=== PATIENT | female | born 2000 | race Caucasian/White ===

== ENCOUNTER → 2019-01-19 16:09 | Outpatient (CLI) | payer BC, SELFPAY ==
[2019-01-19 17:35] LABS: Internal QC Validated? YES +Cl - CLEAR BKGD; Pregnancy, Urine Negative Negative
== END ==
PROVIDERS: Family Provider Family Medicine; PCP Family Medicine; Referring Provider Dermatology; Visit Provider Dermatology
DX: L70.0 Acne vulgaris (principal); Z79.899 Other long term (current) drug therapy
CPT/HCPCS: 81025

== ENCOUNTER 2019-08-12 16:25 | Emergency (ER) | payer BC, MEDICAID, SELFPAY ==
[2019-08-12 16:27] VITALS: BP 109/66; PULSE 85; RESP 16; TEMP 36.5; O2SAT 100; BMI 25.7
--- NOTE | 2019-08-12 16:56 | CT_ITS ---
STUDY: CT SOFT TISSUE NECK WITH CONTRAST REASON FOR EXAM: Female, 19 years old. Chin abscess RADIATION DOSAGE (If Supplied By Facility): CTDIvol = ( 13.11 ) mGy, DLP = ( 402.82 ) mGycm TECHNIQUE: The patient was scanned in a multi-detector CT scanner. High resolution transaxial imaging was performed following intravenous administration of IV 75mL [id number]-370 75ML. Sagittal and coronal images were reconstructed. Individualized dose optimization techniques were used for this CT. COMPARISON: None. FINDINGS: There is a 1.2 cm left of midline left mental space subcutaneous and intramuscular inflammatory focus, likely early abscess formation. There is mild surrounding cellulitis. Underlying mandible is intact without periosteal reaction. Adjacent dental structures are normal. Remainder of the soft tissues of the orbits, face and neck are unremarkable. Airway is patent. CT/Soft Tissue Neck WITH Contrast IMPRESSION: Presumed early abscess formation in the left midline chin. No adjacent osteomyelitis. Electronically Signed: Rajinder Ovalles, at 18:37 EDT Tel , Service support ,
[2019-08-12 17:26] LABS: Absolute Lymphocyte Count 2.51 X10^3/uL (0.83-4.51); Absolute Neutrophil Count 8.2 X10^3/uL (2.0-7.7); Basophil# 0.05 X10^3/uL; Basophil% 0.4 % (0-1); Eosinophil# 0.15 X10^3/uL; Eosinophils% 1.3 % (0-5); Hematocrit 44.8 % (37-47); Hemoglobin 14.8 g/dL (12.0-15.0); Lymphocyte # 2.51 X10^3/ul (4.0); Lymphocyte % 21.2 % (19-41); Mean Corpuscular Hgb 29.1 pg (27.0-32.0); Mean Corpuscular Volume 88.2 fL (81-99); Mean Platelet Vol. 9.9 fl (6.2-12.0); Monocyte# 0.91 X10^3/uL; Monocyte% 7.7 % (0-10); NRBC Flagged by Analyzer 0 % (0-5); Neutrophil # 8.17 X10^3/uL (2.7-7.7); Neutrophil % 69.1 % (47-70); Platelet Count 290 K/mm3 (150-450); RBC Distribution Width CV 12.5 % (11.6-14.6); RBC Distribution Width SD 40.8 fl (35.1-43.9); Red Blood Count 5.08 M/mm3 (4.2-5.4); White Blood Count 11.8 K/mm3 (4.4-11.0)
[2019-08-12 18:01] LABS: Internal QC Validated? YES +Cl - CLEAR BKGD; Pregnancy, Serum, hCG Quali. NEGATIVE Negative
[2019-08-12 18:09] LABS: Anion Gap 8 (5-15); BUN 10 mg/dL (7-18); Chloride 105 mmol/L (98-107); Creatinine, Serum 0.91 mg/dL (0.55-1.02); EST Glomerular Filtration Rate 84 mL/min (>60); Est Glom Filt Rate - Afr Amer 101 mL/min (>60); Estimated Creatinine Clearance 81.58 ml/min; Glucose 86 mg/dL (74-106); Potassium 3.7 mmol/L (3.5-5.1); Sodium Level 138 mmol/L (136-145)
--- NOTE | 2019-08-12 18:47 | ED.VISSUMM ---
- ER Visit Summary Date of Service: 08/12/19 Chief Complaint: Facial abscess History of Present Illness: The patient is a 19 F who presents with a facial abscess that became worse today. Patient was seen at a different emergency department yesterday and had the abscess aspirated with a needle. Patient followed up with her primary care physician today who referred her to the emergency department. Patient states it feels like it is getting worse. Patient states it feels like it is spreading under her chin. Patient states she feels like there are swollen lymph nodes in her left neck. Patient denies any difficulty swallowing. Patient states they gave her a [place] yesterday which did help. Physical Examination: Vital signs are stable. Patient is afebrile. Patient is in no acute distress. Skin is warm dry. There is a tender erythematous area of the left anterior chin. There is mild fluctuance. There is no active discharge or drainage. There is some mild sublingual tenderness but no edema or erythema. There is mild anterior cervical adenopathy on the left. Oral mucosa is pink and moist. Oropharynx is clear. Heart was regular rate and rhythm. Lungs are clear and equal bilaterally. Test Results: CBC showed a slight leukocytosis of 11.8. Basic metabolic profile was normal. hCG was negative. CT scan of the soft tissue neck was obtained. There is an abscess over the anterior chin left of the midline. There is no sublingual abscess formation. There is no evidence of Vikas angina. Emergency Department Course and Treatment: The abscess area was cleaned and anesthetized 1% plain lidocaine locally. A #11 blade scalpel was used to make a small vertical incision. A moderate to large amount of purulent material was expressed. The wound was left open. Bacitracin dressing was applied. Patient was instructed to continue using bacitracin dressings. Patient was instructed to keep the area clean. Patient was given a prescription for Keflex to take in addition to the Bactrim she was prescribed yesterday. Patient was instructed to follow-up with her primary care physician in 5 to 7 days. Patient and family understood and were agreeable with the plan. All questions were answered. Disposition: Discharge home Impression: Facial abscess This note was generated with [employer] software. It may contain incorrect words, spelling, and punctuation that were not noted in review of the chart prior to signing ED Disposition - Plan for ED Patient: Disposition: Home or Assisted Living Diagnosis: Facial abscess Instructions: ABSCESS, Incision and Drainage Prescriptions: Cephalexin [Keflex] 500 mg PO Q6 #40 cap Prescription Printed Referrals: Ad Ricketts III, MD [Primary Care Provider] - 5-7 Days
[2019-08-12 19:25] VITALS: BP 112/87
[2019-08-12] MEDS: Cephalexin 250 MG Capsule 500 MG PO (19:46)
[2019-08-12 19:54] VITALS: BP 123/76; PULSE 67; RESP 17; O2SAT 98
== END 2019-08-12 19:54 | disposition home or self-care (01) ==
PROVIDERS: Emergency Provider Emergency Medicine; Family Provider Family Medicine; PCP Family Medicine
DX: L02.01 Cutaneous abscess of face (principal)
CPT/HCPCS: 70491; 80048; 84703; 85025; 99284; Q9967; A4216

== ENCOUNTER 2021-05-25 13:30 | Outpatient (CLI) | payer BC, MEDICAID, SELFPAY ==
[2021-05-25 13:40] VITALS: BMI 30.4
[2021-05-25 13:44] VITALS: BP 106/60; PULSE 76; TEMP 36.6; O2SAT 98
[2021-05-25 13:47] VITALS: BP 106/60; PULSE 83
[2021-05-25 13:48] VITALS: PULSE 81; O2SAT 98
--- NOTE | 2021-05-26 10:36 | OB.TRI.NOTE ---
HPI - General HPI Narrative ANGÉLICA COLLAZO, is a 21 F who presents with DFM and cramping. PFSH PFSH Home Medications famotidine [Pepcid] 20 mg PO DAILY 05/25/21 [History Last Taken 05/24/21 22:00] [id number] [Prenatabs FA] 1 tab PO DAILY 05/25/21 [History Last Taken 05/25/21 10:00] Allergy/AdvReac Type Severity Reaction Status Date / Time nitrofurantoin Allergy Hives Verified 05/25/21 13:41 [From Macrobid] Social History Smoking Status: Never smoker NST FHR Rate Baby A Baseline: 135 Variability:: Moderate Accelerations:: 15 x 15 Decelerations:: None NST Reactive:: Yes FHR Category:: Category I Uterine Activity:: No regular, frequent ctx's Assessment & Plan (1) 38 weeks gestation of : PLAN: Not in labor. NST reactive. Pt now feeling good FM. Discharged home with follow up in office. (2) Decreased movement: (3) Cramping affecting , antepartum:
== END 2021-05-25 14:49 | disposition home or self-care (01) ==
LOC: WPOUT 13:39 → WP 13:39
PROVIDERS: PCP Family Medicine; Visit Provider Obstetrics & Gynecology
DX: O36.8130 Decreased fetal movements, third trimester, not applicable or unspecified (principal); O47.1 False labor at or after 37 completed weeks of gestation; O26.893 Other specified pregnancy related conditions, third trimester; R10.9 Unspecified abdominal pain; Z3A.38 38 weeks gestation of pregnancy
CPT/HCPCS: 59025; 59050; 99218; G0378

== ENCOUNTER 2021-06-09 19:00 | Inpatient (IN) | payer BC, MEDICAID, SELFPAY ==
[2021-06-09 19:22] VITALS: BMI 30.1
[2021-06-09 19:32] VITALS: BP 121/77; PULSE 93; TEMP 36.4
[2021-06-09 19:33] VITALS: PULSE 92; O2SAT 100
[2021-06-09] MEDS: miSOPROStol 25 MCG TABLET VAGINAL (20:05)
[2021-06-09 20:13] LABS: Absolute Lymphocyte Count 2.06 X10^3/uL (0.83-4.51); Basophil# 0.05 X10^3/uL; Basophil% 0.4 % (0-1); Eosinophil# 0.16 X10^3/uL; Eosinophils% 1.1 % (0-5); Hematocrit 37.4 % (37-47); Hemoglobin 12.4 g/dL (12.0-15.0); Lymphocyte # 2.06 X10^3/ul (0.83-4.51); Lymphocyte % 14.5 % (19-41); Mean Corp Hgb Conc 33.2 g/dL (32-36); Mean Corpuscular Hgb 29.4 pg (27.0-32.0); Mean Corpuscular Volume 88.6 fL (81-99); Mean Platelet Vol. 11.9 fl (6.2-12.0); Monocyte# 0.93 X10^3/uL; Monocyte% 6.5 % (0-10); NRBC Flagged by Analyzer 0 % (0-5); Neutrophil # 10.95 X10^3/uL (2.7-7.7); Neutrophil % 77.1 % (47-70); Platelet Count 210 K/mm3 (150-450); RBC Distribution Width CV 13.4 % (11.6-14.6); RBC Distribution Width SD 43.7 fl (35.1-43.9); Red Blood Count 4.22 M/mm3 (4.2-5.4); White Blood Count 14.2 K/mm3 (4.4-11.0)
[2021-06-09 22:53] LABS: ROM Internal Control Test YES-OK TO RESULT pt. (Internal QC); ROM Patient Test Negative (Negative)
[2021-06-10] VITALS (74 sets, daily range): BP systolic 79–126; BP diastolic 51–86; PULSE 8–89; RESP 14–18; TEMP 35.8–36.9; O2SAT 83–100
[2021-06-10] MEDS: miSOPROStol 25 MCG TABLET VAGINAL (00:07)
[2021-06-10] MEDS: Lactated Ringers 1,000 ML 50 ML IV (03:06)
[2021-06-10] MEDS: Lactated Ringers 500 ML 999 ML IV ×4 (03:55→11:50)
[2021-06-10] MEDS: Oxytocin 30 units/NS 500 ml 30 UNITS/500 ML IV.SOLN IV (06:31)
--- NOTE | 2021-06-10 08:54 | HP.PCM.OB_ITS ---
HPI - General General Date of Admission: 06/09/21 HPI Narrative ANGÉLICA COLLAZO, is a 21 F who presents at 40 weeks 2 days for elective induction of labor after discussing nulliparous low risk patient and reviewing ARRIVE trial. Elected for IOL. Admitted for cytotec cervical ripening. Maternal Data Information JAMIE Calculator Estimated Delivery Date Method Current WG Current Estimate 06/08/21 Manual 40w 2d PFSH PFSH Medical History (Updated 06/10/21 @ 12:00 by Camelia Gray CNM) Anxiety Depression Home Medications famotidine [Pepcid] 20 mg PO DAILY 05/25/21 [History Last Taken 06/09/21 18:00] vit,[id number] [Prenatabs FA] 1 tab PO DAILY 05/25/21 [History Last Taken 06/09/21 08:00] Allergy/AdvReac Type Severity Reaction Status Date / Time nitrofurantoin Allergy Hives Verified 05/25/21 13:41 [From Macrobid] Social History Smoking Status: Never smoker NST FHR Rate Baby A Baseline: 125 Variability:: Minimal Accelerations:: None Decelerations:: Variable FHR Category:: Category II Uterine Activity:: every 2-4 minutes, strong ROS Constitutional Constitutional: Reports systems reviewed and no addt'l complaints, except as documented; Denies headache(s) Eyes Eyes: Denies acute decrease in peripheral vision, blurry vision or change in vision ENT HEENT: Reports systems reviewed and no addt'l complaints, except as documented Cardiovascular Cardiovascular: Denies chest pain or dizziness Respiratory/Chest Respiratory/Chest: Denies cough, dyspnea, dyspnea on exertion, shortness of nata ath at rest or shortness of breath with exertion Gastrointestinal Gastrointestinal: Denies abdominal pain, diarrhea, nausea or vomiting Genitourinary Genitourinary: Denies abdominal discomfort or movement Musculoskeletal Musculoskeletal: Denies limited range of motion Integumentary Integumentary: Reports systems reviewed and no addt'l complaints, except as documented Neurologic Neurologic: Reports systems reviewed and no addt'l complaints, except as documented Psychiatric Psychiatric: Reports systems reviewed and no addt'l complaints, except as docum ented Endocrine Endocrinology: Reports systems reviewed and no addt'l complaints, except as documented Hematologic/Lymphatic Hematologic/Lymphatic: Reports systems reviewed and no addt'l complaints, except as documented Allergic/Immunologic Allergic/Immunologic: Reports systems reviewed and no addt'l complaints, except as documented Vital Signs Vital Signs Vital Signs: 06/09/21 19:32 06/09/21 19:33 06/10/21 00:01 Temperature 97.6 F L 97.9 F Temperature Source Temporal Temporal Pulse Rate 93 92 68 Blood Pressure 121/77 H 117/76 BP Systolic 121 117 BP Diastolic 77 76 Pulse Ox 100 06/10/21 00:02 06/10/21 00:03 06/10/21 03:55 Temperature 97.8 F Temperature Source Temporal Pulse Rate 70 70 67 Blood Pressure 104/57 L BP Systolic 104 BP Diastolic 57 Pulse Ox 99 99 06/10/21 06:22 06/10/21 06:25 06/10/21 06:26 Temperature 98.4 F Temperature Source Temporal Pulse Rate 70 65 Blood Pressure 122/82 H BP Systolic 122 BP Diastolic 82 Pulse Ox 100 06/10/21 07:24 06/10/21 07:25 06/10/21 08:25 Temperature 97.0 F L Temperature Source Temporal Pulse Rate 69 70 70 Blood Pressure 112/71 114/73 BP Systolic 112 114 BP Diastolic 71 73 Pulse Ox 100 100 Weight Weight: 170 lb 4 oz Body Mass Index (BMI) 30.1 Physical Exam Const alert and oriented x3 General Appearance: cooperative Orientation / Consciousness: awake, oriented to person, oriented to place and oriented to time Exam Limitations: no limitations HEENT normocephalic Head and Scalp: normal to inspection, normocephalic and atraumatic Face and Sinus: normal facial exam Eyes General Eye: normal appearance of both eyes Neck full ROM Chest Chest: symmetrical chest wall rise Resp normal respiratory effort and normal air movement Auscultation: clear to auscultation bilaterally Cardio regular rate, regular rhythm, S1 normal heart sound, S2 normal heart sound, no murmurs, no rub, no gallops and no clicks GI normal to inspection, nondistended, normoactive bowel sounds and non-tender appearance of the vagina normal Narrative: AROM clear fluid, small amount. 4cm/50%/-1 Bladder / Kidney Exam: no CVA tenderness Back/Spine normal ROM Extremity normal to inspection and full ROM Skin no rashes or lesions noted Neuro oriented x3, CN's II-XII intact bilaterally and moves all extremities Sensorium / Orientation: awake, alert and oriented to person Motor Exam: clonus absent Deep Tendon Reflexes: Rt Patellar (L4): 2+ and Lt Patellar (L4): 2+ Labs Labs Labs: Blood Type A POSITIVE Antibody Screen NEGATIVE Hct 37.4 % (37-47) Hgb 12.4 g/dL (12.0-15.0) RPR negative 1hr GCT normal Rubella Immune HBsAG negative HIV negative HepC negative GC/CT negative A positive COVID negative on 06/06/21 Assessment & Plan (1) Encounter for elective induction of labor: (2) Anxiety: PLAN: 1) Admit to labor and delivery for elective induction of labor 2) Routine labs 3) COVID negative 4) Continuous EFM 5) Epidural for pain management 6) AROM. Pitocin per protocol 7) collaborative physician and notified of patient status.
[2021-06-10] MEDS: fentaNYL-bupivacaine (epidural) 100 ML BAG EPIDURAL (09:34)
[2021-06-10] MEDS: Lactated Ringers 1,000 ML 200 ML IV (09:38)
--- NOTE | 2021-06-10 12:05 | PN.OBGYN_ITS ---
Subjective Subjective comfortable with epidural. Family at bedside. Position on left lateral side. Objective Data Objective Data Vital Signs: Vital Signs Temp Pulse BP Pulse Ox 97.0 F L 64 119/72 100 06/10/21 10:28 06/10/21 11:46 06/10/21 11:39 06/10/21 11:46 Weight: 170 lb 4 oz Body Mass Index (BMI) 30.1 Intake & Output: Intake and Output for Last 24 Hours 06/08/21 06/09/21 06/10/21 23:59 23:59 23:59 Intake Total 1605.13 / 1605.13 Balance 1605.13 / 1605.13 Lab / Micro Data Result Diagrams: 06/09/21 19:40 Labs: Laboratory Results - last 24 hr 06/09/21 19:40: WBC 14.2 H, RBC 4.22, Hgb 12.4, Hct 37.4, MCV 88.6, MCH 29.4, MCHC 33.2, RDW Std Deviation 43.7, RDW Coeff of Aditya 13.4, Plt Count 210, MPV 11.9, Immature Gran % (Auto) 0.400, Neut % (Auto) 77.1 H, Lymph % (Auto) 14.5 L, [place] % (Auto) 6.5, Eos % (Auto) 1.1, Baso % (Auto) 0.4, Absolute Neuts (auto) 11.0 H, Absolute Lymphs (auto) 2.06, Nucleated RBC % 0 06/09/21 19:40: Blood Type A POSITIVE, Antibody Screen NEGATIVE 06/09/21 22:00: Vag Amniotic Fld Detect Negative Physical Exam Narrative 5cm/70%/-1 asynclitic NST FHR Rate Baby A Baseline: 145 Variability:: Minimal Accelerations:: 15 x 15 Decelerations:: Variable FHR Category:: Category II Uterine Activity:: Irregular. Pitocin off Assessment & Plan (1) Encounter for elective induction of labor: PLAN: 1) Called to labor and delivery for prolonged decelerations, BP low and anesthesia called to give ephedrine. BP stable. and FHR return to baseline 2) Asynclitic position, peanut ball to help with position 3) To turn pitocin back on after recovery for 30 minutes 4) notified of patient status
[2021-06-10] MEDS: Amnioinfusion- 0.9% NS 1,000 ML IV.SOLN. 1000 ML INTRA-UTER (12:12)
[2021-06-10] MEDS: Sodium Citrate/Citric Acid 30 ML UDC PO (12:49)
[2021-06-10] MEDS: Methylergonovine 0.2 MG/ML Ampul IM (13:23)
[2021-06-10] MEDS: Cefazolin 2 GM in 0.9% Normal Saline 100 ML IV (13:29)
[2021-06-10] MEDS: proCHLORPERazine 10 MG/2 ML Vial IV (14:23)
[2021-06-10] MEDS: 0.9% Saline Lock 10 ML Syringe IV ×2 (14:29→14:33)
[2021-06-10] MEDS: Ketorolac 30 MG/ML Syringe IV ×2 (14:29→20:10)
[2021-06-10] MEDS: Oxytocin 30 units/NS 500 ml 30 UNITS/500 ML IV.SOLN 167 UNITS IV (14:34)
--- NOTE | 2021-06-10 15:52 | PCM.OPRPT ---
Problems Associated Problem List Diagnoses (1) Encounter for elective induction of labor: (2) intolerance to labor, delivered, current hospitalization: Report of Operation Date of Procedure: 06/10/21 Pre-Operative Diagnosis: Elective IOL, 40 week gestation, intolerance to labor Post-Operative Diagnosis: As above Surgery/Procedure Performed:: Primary section Description of Surgical Findings:: Normal appearing uterus, bilateral tubes, bilateral ovaries. Normal-appearing placenta. Nuchal cord x 1. Surgeon: rios valdez tooth cutter contact wheel: Dwight Type of Anesthesia: Epidural Special Medications: None Specimen's removed: Placenta Drains: Jenkins Estimated Blood Loss (mL): 800 Fluids Replaced: 1700 Description of Procedure: Patient was taken to the operating room where epidural anesthesia was adequate. She was prepped and draped in dorsal position with a leftward tilt. A Pfannenstiel skin incision was made with a scalpel and this was carried down to the underlying layer of fascia. The fascia was incised in midline and extended laterally using Pepe scissors. The fascia was sharply dissected off the rectus muscles. The rectus muscles were in the midline. Peritoneum was entered sharply with good visualization of the bladder. The incision was extended. A bladder flap was created. A low transverse incision was made on the uterus. A viable infant was delivered easily without any force or delay in vertex position. The cord was clamped and cut after a 60 sec delay. The infant was handed off to nursery staff. The uterus was exteriorized. The uterus was cleared of all clot and debris. The uterus was closed with Vicryl in a running locked fashion. Uterus was placed back in the abdomen. Hemostasis was noted. Lesly was placed over the hysterotomy. The peritoneum was closed with 3-0 Vicryl in a running fashion. The fascia was closed with 1-0 Vicryl in a running fashion. The subcutaneous space was irrigated. The subcutaneous space was reapproximated with 3-0 Vicryl. The skin was closed in a subcuticular fashion. Instrument, sponge, needle counts were correct. The patient was taken to recovery in stable condition. Grafts/Implants Used: None Complications None Admit VTE Documentation VTE Present on Admission: No VTE Mechan Device Prophylaxis: SCD's
[2021-06-10] MEDS: Acetaminophen 500 MG Tablet 1000 MG PO ×2 (15:58→21:47)
--- NOTE | 2021-06-10 16:20 | NURSING ---
epidural catheter removed. blue tip intact.
[2021-06-10] MEDS: Lactated Ringers 1,000 ML 100 ML IV (18:25)
[2021-06-10] MEDS: Ondansetron 4 MG/2 ML Vial IV (20:10)
[2021-06-11 00:47] VITALS: PULSE 66; RESP 15; O2SAT 98
[2021-06-11] MEDS: Enoxaparin 40 MG/0.4 ML Syringe SC (01:50)
[2021-06-11 02:03] VITALS: PULSE 68; RESP 16; O2SAT 98
[2021-06-11] MEDS: Acetaminophen 500 MG Tablet 1000 MG PO ×3 (03:49→16:54)
[2021-06-11] MEDS: Ketorolac 30 MG/ML Syringe IV ×2 (03:49→09:47)
[2021-06-11] MEDS: 0.9% Saline Lock 10 ML Syringe IV ×2 (03:50→09:48)
[2021-06-11 03:56] VITALS: BP 99/58; PULSE 65; RESP 14; O2SAT 98
[2021-06-11 06:12] LABS: Hematocrit 31.9 % (37-47); Hemoglobin 10.7 g/dL (12.0-15.0); Mean Corp Hgb Conc 33.5 g/dL (32-36); Mean Corpuscular Hgb 30.2 pg (27.0-32.0); Mean Corpuscular Volume 90.1 fL (81-99); Mean Platelet Vol. 11.3 fl (6.2-12.0); Platelet Count 165 K/mm3 (150-450); RBC Distribution Width CV 13.4 % (11.6-14.6); RBC Distribution Width SD 44.3 fl (35.1-43.9); Red Blood Count 3.54 M/mm3 (4.2-5.4); White Blood Count 15.1 K/mm3 (4.4-11.0)
[2021-06-11 08:00] VITALS: BP 105/71; PULSE 71; RESP 16; TEMP 36.5
--- NOTE | 2021-06-11 08:35 | PCM.PN.OB ---
Subjective Subjective patient seen at bedside, doing well. Patient reports good pain control. lochia mild. passing flatus, toelrating regular diet. Objective Data Objective Data Vital Signs: Vital Signs Temp Pulse Resp BP Pulse Ox 97.3 F L 65 14 99/58 L 98 06/10/21 22:37 06/11/21 03:56 06/11/21 03:56 06/11/21 03:56 06/11/21 03:56 Oxygen Delivery Method Room Air Weight: 77.224 kg Body Mass Index (BMI) 30.1 Intake & Output: Intake and Output for Last 24 Hours 06/09/21 06/10/21 06/11/21 23:59 23:59 23:59 Intake Total 4337.86 / 4337.86 Output Total 3200 / 3200 1550 / 1550 Balance 1137.86 / 1137.86 -1550 / -1550 Lab / Micro Data Result Diagrams: 06/11/21 06:00 Labs: Laboratory Results - last 24 hr 06/11/21 06:00: WBC 15.1 H, RBC 3.54 L, Hgb 10.7 L, Hct 31.9 L, MCV 90.1, MCH 30.2, MCHC 33.5, RDW Std Deviation 44.3 H, RDW Coeff of Aditya 13.4, Plt Count 165, MPV 11.3 Physical Exam Narrative dressing dry and intact. Const alert and oriented x3 General Appearance: cooperative HEENT normocephalic Neck General: normal visual inspection GI soft to palpation and non-distended GI Narrative: Fundus firm Extremity normal to inspection and no calf tenderness Skin no rashes or lesions noted Neuro oriented x3 and CN's II-XII intact bilaterally Psych mental status grossly normal Assessment & Plan (1) Delivery by section: PLAN: POD# 1 , Doing well Routine care pain mgmt monitor VS ambulation dc home per patient request
--- NOTE | 2021-06-11 08:36 | PCM.DC ---
Discharge Instructions Diet Discharge Diet: No restrictions Activity May resume sexual activity in: 6-8 weeks Lifting Restrictions: 25 Dressing / Incision Call your doctor if your incision/area has: Continuous Slow Oozing, Sudden Increased Bleeding, Increased Pain/ Swelling, Increased Redness, Foul Smelling Discharge and Swelling at the incision site Call your doctor if you observe: Fever of 101 or Higher, Inability to urinate, Using more than 1 pad per hour and Uncontrolled pain Additional Dressing/Incision Instructions:: remove dressing at 7 days post op- if it becomes saturated prior to that time you may remove it. Let soap and water run over incision sites and dab dry. keep incision clean and dry. Follow Up Care Please Follow Up With: Sirena Cerrato MD When: 1-2 weeks post of incision check and again at 6 weeks post . [phone] Test Results: Test results from this visit will be discussed in further detail at your follow-up appointment, if applicable. Discharge Plan Admission Admit Date/Time: 06/09/21 19:00 Attending Provider: Radha Bruce Primary Care Provider: Care Physician,Jayshree Primary Discharge Orders/Prescriptions Prescriptions: New acetaminophen 500 mg Tablet 1,000 mg PO Q6H Qty: 30 RF: 0 ibuprofen 600 mg Tablet 600 mg PO Q6H Qty: 30 RF: 0 simethicone [Mi-Acid Gas Relief(simethicon)] 80 mg Tablet,Chewable 80 mg PO PCHS PRN (Reason: Indigestion/stomach pain) Qty: 20 RF: 0 Continued famotidine [Pepcid] 20 mg Tablet 20 mg PO DAILY RF: 0 Prenatabs FA 29-1 mg Tablet 1 tab PO DAILY RF: 0 Referrals / Follow Up: Care Physician,No Primary [Primary Care Provider] - Disposition Disposition (needs filled in before D/C Order can be placed): Home, Self Care
[2021-06-11] MEDS: Senna/Docusate Sodium 1 Tablet PO (09:50)
[2021-06-11 14:00] VITALS: BP 103/64; PULSE 65; RESP 16; TEMP 36.3
--- NOTE | 2021-06-11 15:21 | NURSING ---
requesting to wait until 2 week follow up visit for Nexplanon, office notified
[2021-06-11] MEDS: Ibuprofen 600 MG Tablet PO (15:31)
--- NOTE | 2021-06-11 16:19 | PCM.DC.BLA ---
Discharge Summary Date of Admission: 06/09/21 Date of Discharge: 06/11/21 Summary: Admitted for elective IOL- pt had non reassuring status in labor and underwent primary cs by Dr. Bruce on . Pt had uncomplicated post op course and was discharged home on POD#1 in stable condition. Meaningful Use Info Meaningful Use Diagnoses (Choose all that apply): None applicable Discharge Plan Admission Admit Date/Time: 06/09/21 19:00 Attending Provider: Radha Bruce Primary Care Provider: Care Physician,Jayshree Primary Discharge Orders/Prescriptions Prescriptions: New acetaminophen 500 mg Tablet 1,000 mg PO Q6H Qty: 30 RF: 0 ibuprofen 600 mg Tablet 600 mg PO Q6H Qty: 30 RF: 0 simethicone [Mi-Acid Gas Relief(simethicon)] 80 mg Tablet,Chewable 80 mg PO PCHS PRN (Reason: Indigestion/stomach pain) Qty: 20 RF: 0 Continued famotidine [Pepcid] 20 mg Tablet 20 mg PO DAILY RF: 0 Prenatabs FA 29-1 mg Tablet 1 tab PO DAILY RF: 0 Referrals / Follow Up: Care Physician,No Primary [Primary Care Provider] - Disposition Disposition (needs filled in before D/C Order can be placed): Home, Self Care
== END 2021-06-11 19:05 | disposition home or self-care (01) | DRG 788 ==
PROVIDERS: Obstetrics & Gynecology; Admitting Provider Obstetrics & Gynecology; Visit Provider Obstetrics & Gynecology
DX: O69.81X0 Labor and delivery complicated by cord around neck, without compression, not applicable or unspecified (principal); O76 Abnormality in fetal heart rate and rhythm complicating labor and delivery; O99.344 Other mental disorders complicating childbirth; F41.9 Anxiety disorder, unspecified; Z3A.40 40 weeks gestation of pregnancy; Z37.0 Single live birth
CPT/HCPCS: 59025; 59050; 84112; 85025; 85027; 86850; 86900; 86901; 99218; 99251; J7030; J7120; A4216; G0378; G0463; J2405